=== PATIENT | female | born 1965 | race African-American/Black ===

== ENCOUNTER 2025-02-19 15:16 | Emergency (ER) | payer OTHER ==
[~2025-02-19] VITALS: Ht 165.1 cm; Wt 70.0 kg
[2025-02-19 15:18] VITALS: O2SAT 97
[2025-02-19] MEDS ORDERED: LIDOCAINE HCL/PF 1% 2ML VIAL ONE (15:27)
[2025-02-19 15:45] VITALS: TEMP 37.1
[2025-02-19 15:51] LABS: BASOPHILS % 0.5 % (0.0-2.0); EOSINOPHILS % 0.3 % (0.0-5.0); HEMATOCRIT. 47.9 % (36.0-48.0); HEMOGLOBIN. 15.2 g/dL (12.0-16.0); MEAN CORPUSCULAR HEMOGLOBIN 28.8 pg (28.0-32.0); MEAN CORPUSCULAR HGB CONC 31.7 g/dL (31.0-37.0); MEAN PLATELET VOLUME 10.8 fl (7.4-10.4); MONOCYTES % 5.3 % (2.0-8.0); NEUTROPHILS % 72.9 % (40.0-76.0); PLATELET 200 x1000/uL (130-400); RED BLOOD CELL COUNT 5.26 mill/uL (4.2-5.4); RED CELL DISTRIBUTION WIDTH 13.4 % (11.6-14.6); WHITE BLOOD COUNT 10.9 x1000/uL (4.5-11.0)
[2025-02-19 15:57] LABS: CHLORIDE 89 mEq/L (98-107); POTASSIUM 4.5 mEq/L (3.5-5.1); SODIUM 127 mEq/L (136-145)
[2025-02-19 15:58] LABS: CALCIUM 9.1 mg/dL (8.7-10.4); CARBON DIOXIDE 23 mEq/L (21-32)
[2025-02-19] MEDS: SODIUM CHLORIDE 0.9% 1,000 ML IV ONE (16:02)
[2025-02-19 16:03] LABS: CREATININE 1.1 mg/dL (0.6-1.0); UREA NITROGEN BLOOD 17 mg/dL (9-23)
[2025-02-19 16:05] LABS: ALANINE AMINOTRANSFERASE 29 IU/L (10-49); ASPARTATE AMINOTRANSFERASE 16 IU/L (<34); BETA HYDROXYBUTYRATE 4.4 mMol/L (0.0-0.3); BILIRUBIN DIRECT 0.1 mg/dL (<=3.0); BILIRUBIN TOTAL 0.6 mg/dL (0.1-1.0); PROTEIN TOTAL 6.6 g/dL (6.0-8.3)
[2025-02-19 16:06] LABS: BG BASE EXCESS -5.3 mmol/L (-2.0-3.0); BG CARBOXYHEMOGLOBIN 3.8 % (0.5-1.5); BG DEOXYHEMOGLOBIN 3.8 % (0.0-5.0); BG FRACTION INSPIRED OXYGEN 21; BG METHEMOGLOBIN 0.2 % (0.5-1.5); BG OXYHEMOGLOBIN 92.2 % (94.0-98.0); BG PCO2 38.3 mmHg (32.0-45.0); BG PH 7.336 (7.350-7.450); BG PO2 81.4 mmHg (83.0-108.0); BG SAMPLE SITE RIGHT RADIAL; BG TOTAL HEMOGLOBIN 14.9 g/dL (12.0-16.0); BG VENT MODE ROOM AIR
[2025-02-19 16:17] LABS: TROPONIN I HIGH SENSITIVITY < 4 ng/L (3.0-34)
[2025-02-19 16:20] LABS: GLUCOSE 504 mg/dL (70-105)
[2025-02-19 16:34] LABS: INR 0.9; PROTHROMBIN TIME 9.9 sec (9.6-11.0)
[2025-02-19] MEDS: SODIUM CHLORIDE 0.9% 1,000 ML IV NR (17:00)
[2025-02-19] MEDS: INSULIN REGULAR (HUMULIN R) 1000UNITS/10ML VIAL SUBCUT NR (17:12)
[2025-02-19 17:27] LABS: CLARITY URINE CLEAR (CLEAR); COLOR URINE YELLOW (YELLOW); GLUCOSE URINE 3+ (NEGATIVE); KETONES URINE 2+ (NEGATIVE); LEUKOCYTE ESTERASE URINE NEGATIVE (NEGATIVE); NITRITE URINE NEGATIVE (NEGATIVE); OCCULT BLOOD URINE NEGATIVE (NEGATIVE); PH URINE 5.5 (4.5-8.0); PROTEIN URINE NEGATIVE (NEGATIVE); SPECIFIC GRAVITY URINE 1.027 (1.005-1.030); UROBILINOGEN URINE 0.2 E.U./dL (0.2-1.0)
[2025-02-19 17:44] LABS: BACTERIA URINE NONE SEEN; RBC URINE NONE SEEN /hpf (0-2); SQUAMOUS EPITHELIAL CELL URINE RARE /lpf (RARE/1+); WBC URINE 0-2 /hpf (0-2)
[2025-02-19 17:45] VITALS: O2SAT 98
[2025-02-19 18:24] VITALS: BP 175/98; PULSE 74; RESP 18
[2025-02-19] MEDS: INSULIN REGULAR (HUMULIN R) 1000UNITS/10ML VIAL SUBCUT ONE (18:30)
[2025-02-19] MEDS: AMLODIPINE 5MG TABLET PO NR (18:30)
[2025-02-19] MEDS ORDERED: AMLODIPINE 10MG TABLET PO ONE (18:30)
[2025-02-19] MEDS ORDERED: INSU100I28 SQ (18:38)
[2025-02-19] MEDS ORDERED: [UNRECOGNIZED DRUG - CODE] EXT (18:38)
[2025-02-19] MEDS ORDERED: BLOO-1482 MC (18:38)
== END 2025-02-19 20:51 | disposition home or self-care (01) ==
LOC: ER 15:16
DX: E11.65 Type 2 diabetes mellitus with hyperglycemia (principal); Z79.4 Long term (current) use of insulin; Z79.899 Other long term (current) drug therapy
CPT/HCPCS: 80076; 80048; 81003; 82010; 82962; 83690; 83930; 85025; 85610; 84484; 36415; 71045; 82805; 82375; 96360; 96361; 96372; 99284; 36600; J1815; J3490; J7030; Z7610